=== PATIENT | male | born 1950 | race Caucasian/White ===

== ENCOUNTER 2020-04-11 07:00 | Outpatient (CLI) | payer OTHER | END 2020-04-11 15:00 | disposition home or self-care (01) | LOC: LAB 07:00 | PROVIDERS: ATTEND Specialist | DX: Z11.1 Encounter for screening for respiratory tuberculosis (principal) ==

== ENCOUNTER 2020-04-11 12:49 | Outpatient (CLI) | payer OTHER | END 2020-04-11 17:35 | disposition home or self-care (01) | LOC: EDBD 12:49 → RAD 12:49 | PROVIDERS: ATTEND Specialist | DX: M94.0 Chondrocostal junction syndrome [Tietze] (principal) ==

== ENCOUNTER → 2021-03-14 | Outpatient (CLI) | payer OTHER | END | disposition home or self-care (01) | LOC: LAB 10:03 | PROVIDERS: ATTEND Emergency Medicine Pediatric Emergency Medicine | DX: Z03.818 Encounter for observation for suspected exposure to other biological agents ruled out (principal) ==

== ENCOUNTER 2021-04-10 08:00 | Outpatient (CLI) | payer OTHER | END 2021-04-10 08:30 | disposition home or self-care (01) | LOC: PPH VACUNA 08:00 | DX: Z23 Encounter for immunization (principal) ==

== ENCOUNTER 2022-02-07 09:46 | Outpatient (CLI) | payer OTHER | END 2022-02-07 10:03 | disposition home or self-care (01) | LOC: PPH VACUNA 09:46 | PROVIDERS: ATTEND Emergency Medicine Pediatric Emergency Medicine | DX: Z23 Encounter for immunization (principal) ==

== ENCOUNTER 2022-07-22 10:34 | Outpatient (CLI) | payer OTHER | END 2022-07-22 10:44 | disposition home or self-care (01) | LOC: PPH VACUNA 10:34 | PROVIDERS: ATTEND Emergency Medicine Pediatric Emergency Medicine | DX: Z23 Encounter for immunization (principal) ==

== ENCOUNTER 2023-06-11 14:00 | Outpatient (CLI) | payer OTHER | END 2023-06-11 14:10 | disposition home or self-care (01) | LOC: PPH VACUNA 14:00 | PROVIDERS: ATTEND Emergency Medicine Pediatric Emergency Medicine | DX: Z23 Encounter for immunization (principal) | CPT/HCPCS: 90686; G0008 ==